=== PATIENT | female | born 1950 | race Caucasian/White ===

== ENCOUNTER 2016-12-06 00:59 | Inpatient (IN) ==
--- NOTE | 2016-12-06 01:12 | Emergency Department Note ---
Weakness HPI - General Chief complaint: Weakness Stated complaint: Weakness Time Seen by Provider: 12/06/16 01:10 Source: patient Mode of arrival: ambulatory Limitations: no limitations - History of Present Illness HPI Narrative: Patient presents with daughter was concerned for general lightheadedness weakness. Patient obviously jaundiced, unclear timeline. States accommodation of symptoms including nausea, anorexia, frequent falls without injury, increasingly weak. Patient apparently worked up 2 or 3 months ago through [facility], advised to stop drinking alcohol which she did completely. Also stopped taking frequent Percocet with Tylenol. Long-standing heavy alcohol history. . Negative hepatitis workup. Recent hysterectomy at the in September, indication Cancer. Has been advised to have radiation therapy but has been too weak to pursue. - Related Data Allergies Allergy/AdvReac Type Severity Reaction Status Date / Time No Known Drug Allergies Allergy Verified 12/06/16 01:00 Review of Systems All systems ED: reviewed and negative except as stated. Constitutional: Reports: weakness. Denies: fever, chills, weight change Cardiovascular: Denies: chest pain, palpitations, dyspnea on exertion Respiratory: Reports: dyspnea. Denies: cough Gastrointestinal: Denies: abdominal pain Past Medical History - Past Medical History Attestation: Yes: The following information was validated with the patient. Medical history: Reports: other (uterine ca; alcohol abuse) Surgical history ED: Reports: TOBY/BSO Family history: Reports: no significant family history - Social History smoking status: Never smoker Physical Exam - General Limitations: no limitations General appearance: other (meandering history) - Head Head exam: atraumatic - Eye Eye exam: Present: scleral icterus - ENT ENT exam: normal exam, mucous membranes dry - Neck Neck exam: Present: normal inspection. Absent: lymphadenopathy - Chest Chest inspection: Present: normal inspection - Respiratory Respiratory exam: Present: normal lung sounds bilaterally. Absent: respiratory distress - Cardiovascular Cardiovascular exam: Present: regular rate, normal rhythm. Absent: systolic murmur - Abdominal Exam Abdominal exam: Present: soft, organomegaly (large firm liver). Absent: tenderness, guarding - Extremities Exam Extremities exam: Present: normal inspection, other (1+ non pitting, generalized ) - Back Exam Back exam: Present: normal inspection - Neurological Exam Neurological exam: Present: alert - Psychiatric Psychiatric exam: Present: normal affect - Skin Skin exam: Present: warm, dry, other (dense bright jaundice) Course - Reevaluation(s) Reevaluation #1: patient continues to be mildly confused, profoundly weak. Unable to stand to pivot or transfer. Additional history from family the patient living in a hoarding situation in [place], picked up and brought here for further evaluation. Mother lives in town but the primary caregiver but advancing age. Daughter lives in [place],having to leave town shortly case discussed with Dr. Chávez, willing for admission patient to be held over pending bed later today Time: 08:06 Vital Signs Temperature 98.0 F 12/06/16 01:00 Pulse Rate 80 12/06/16 01:00 Respiratory Rate 18 12/06/16 01:00 Blood Pressure 89/66 12/06/16 01:00 Pulse Oximetry (%) 99 12/06/16 01:00 Temperature 98.0 F 12/06/16 01:00 Pulse Rate 76 12/06/16 07:58 Respiratory Rate 16 12/06/16 07:58 Blood Pressure 92/47 12/06/16 07:58 Pulse Oximetry (%) 99 12/06/16 07:58 Weakness - Lab Data Lab results reviewed: Yes I reviewed the patient's lab results. Result diagrams: 12/06/16 01:05 12/06/16 01:05 Lab Results 12/06/16 12/06/16 12/06/16 Range/Units 01:05 01:05 01:05 WBC 15.1 H (4.5-11.0) K/mcL RBC 3.38 L (4.00-5.20) M/mcL Hgb 12.2 (12.0-15.0) g/dL Hct 36.7 (36.0-48.0) % POC Hct 39.0 (36.0-48.0) % MCV 108.6 H (80.0-100.0) fL MCH 36.0 H (26.0-34.0) pg MCHC 33.1 (31.0-36.0) g/dL RDW 16.9 H (11.5-14.5) % Plt Count 236 (140-440) K/mcL MPV 9.1 (7.4-10.4) fL Gran % 83.6 H (38.0-78.0) % Lymph % (Auto) 8.6 L (15.5-49.0) % Beckham % (Auto) 7.5 (1.0-12.0) % Eos % (Auto) 0.3 (0.0-7.0) % Baso % (Auto) 0 (0.0-2.0) % Gran # 12.6 H (1.8-8.0) K/mcL Lymph # 1.3 L (1.5-4.8) K/mcL Beckham # 1.1 H (0.1-0.9) K/mcL Eos # 0 (0.0-0.7) K/mcL Baso # 0 (0.0-0.3) K/mcL PT 16.3 H (11.9-14.5) sec INR 1.3 H (0.9-1.1) POC Sodium 135 (133-145) mmol/L Sodium 131 L (133-145) mmol/L POC Potassium 2.6 L* (3.3-5.1) mmol/L Potassium 2.7 L* (3.3-5.1) mmol/L POC Chloride 94 L (96-108) mmol/L Chloride 90 L (96-108) mmol/L Carbon Dioxide 21 L (22-30) mmol/L POC Total CO2 24 (22-30) mmol/L Anion Gap 20.0 H (8-16) POC BUN 26 H (8-23) mg/dl BUN 27 H (8-23) mg/dl Creatinine < 2.0 H (0.6-1.1) mg/dl POC Creatinine 2.1 H (0.6-1.1) mg/dl GFR Calculation 25 Glucose 86 (70-105) mg/dL POC Glucose 85 (70-105) mg/dL Calcium 9.3 (8.6-10.4) mg/dl POC WB Ioniz Calcium 0.93 L (1.16-1.32) mmol/L Magnesium (1.6-2.5) mg/dL Total Bilirubin 30.7 H (0.0-1.0) mg/dL AST 260 H (0-37) U/l ALT 111 H (0-40) U/l Alkaline Phosphatase 337 H (39-117) U/L Ammonia (11-51) mcmol/L Total Protein 6.5 (5.9-8.4) gm/dL Albumin 2.9 L (3.2-5.2) gm/dL Globulin 3.6 (2.2-3.7) gm/dL Albumin/Globulin Ratio 0.8 L (1.0-2.3) 12/06/16 12/06/16 Range/Units 01:05 01:05 WBC (4.5-11.0) K/mcL RBC (4.00-5.20) M/mcL Hgb (12.0-15.0) g/dL Hct (36.0-48.0) % POC Hct (36.0-48.0) % MCV (80.0-100.0) fL MCH (26.0-34.0) pg MCHC (31.0-36.0) g/dL RDW (11.5-14.5) % Plt Count (140-440) K/mcL MPV (7.4-10.4) fL Gran % (38.0-78.0) % Lymph % (Auto) (15.5-49.0) % Beckham % (Auto) (1.0-12.0) % Eos % (Auto) (0.0-7.0) % Baso % (Auto) (0.0-2.0) % Gran # (1.8-8.0) K/mcL Lymph # (1.5-4.8) K/mcL Beckham # (0.1-0.9) K/mcL Eos # (0.0-0.7) K/mcL Baso # (0.0-0.3) K/mcL PT (11.9-14.5) sec INR (0.9-1.1) POC Sodium (133-145) mmol/L Sodium (133-145) mmol/L POC Potassium (3.3-5.1) mmol/L Potassium (3.3-5.1) mmol/L POC Chloride (96-108) mmol/L Chloride (96-108) mmol/L Carbon Dioxide (22-30) mmol/L POC Total CO2 (22-30) mmol/L Anion Gap (8-16) POC BUN (8-23) mg/dl BUN (8-23) mg/dl Creatinine (0.6-1.1) mg/dl POC Creatinine (0.6-1.1) mg/dl GFR Calculation Glucose (70-105) mg/dL POC Glucose (70-105) mg/dL Calcium (8.6-10.4) mg/dl POC WB Ioniz Calcium (1.16-1.32) mmol/L Magnesium 2.6 H (1.6-2.5) mg/dL Total Bilirubin (0.0-1.0) mg/dL AST (0-37) U/l ALT (0-40) U/l Alkaline Phosphatase (39-117) U/L Ammonia 63 H (11-51) mcmol/L Total Protein (5.9-8.4) gm/dL Albumin (3.2-5.2) gm/dL Globulin (2.2-3.7) gm/dL Albumin/Globulin Ratio (1.0-2.3) - Radiology Data Radiology results reviewed: Yes I reviewed the patient's radiology results. CT abdomen without contrast; ascites, . Large liver, unclear cirrhosis, no obstructive findings, no clear cancer Disposition Clinical Impression: Jaundice, Alcohol abuse, Weakness, Hepatorenal failure, Hypokalemia Liver failure Qualifiers: Liver failure chronicity: subacute Hepatic coma status: without hepatic coma Qualified Code(s): K72.00 - Acute and subacute hepatic failure without coma Summary: Report prognosis; apparent previous hepatopathy survey to the [facility], records to be requested Admit Dr. Dubon for further workup, probable group home placement Disposition: Xfer As Inpt ([facility]) Condition: Serious
[2016-12-06 03:08] LABS: Basophils # (Auto) 0 K/mcL (0.0-0.3); Basophils % (Auto) 0 % (0.0-2.0); Eosinophils # (Auto) 0 K/mcL (0.0-0.7); Eosinophils % (Auto) 0.3 % (0.0-7.0); Granulocytes % (Auto) 83.6 % (38.0-78.0); Lymphocytes # (Auto) 1.3 K/mcL (1.5-4.8); Lymphocytes % (Auto) 8.6 % (15.5-49.0); Mean Cell Volume 108.6 fL (80.0-100.0); Mean Corpuscular HGB Conc 33.1 g/dL (31.0-36.0); Monocytes # (Auto) 1.1 K/mcL (0.1-0.9); Monocytes % (Auto) 7.5 % (1.0-12.0); Platelet Count 236 K/mcL (140-440); RBC 3.38 M/mcL (4.00-5.20); Red Cell Distribution Width 16.9 % (11.5-14.5)
[2016-12-06 03:30] LABS: ALT/SGPT 111 U/l (0-40); Albumin 2.9 gm/dL (3.2-5.2); Albumin/Globulin Ratio 0.8 (1.0-2.3); Alkaline Phosphatase 337 U/L (39-117); Blood Urea Nitrogen 27 mg/dl (8-23)
[2016-12-06] MEDS ORDERED: POTASSIUM CHLORIDE 20 MEQ in DEXTROSE 5% IN WATER 250 ML IV ONE (03:38)
--- NOTE | 2016-12-06 07:52 | Cat Scan Report ---
CLINICAL INFORMATION: Jaundice. Weakness. COMPARISON: None. TECHNIQUE: Axial images were obtained through the abdomen and pelvis. Sagittally and coronally reformatted images. Intravenous contrast material was not administered due to a history of elevated creatinine FINDINGS: Lung bases are negative. No parenchymal infiltrate or mass. No pleural fluid. No pericardial fluid. Severe fatty infiltration of the liver consistent with hepatic steatosis. No hepatic mass. Liver contour is smooth. Gallbladder is not present. No dilated bile ducts. Negative pancreas. No pancreatic mass. Negative spleen. No splenomegaly. Negative adrenal glands. Negative kidneys. No hydronephrosis. No solid mass. There is a cortical calcification in the left kidney which measures 5 mm. There is mild associated renal cortical substance loss consistent with small focal chronic infarction. Uterus is been removed. Apparently there is a history of uterine cancer. There is free pelvic fluid. No adnexal mass. No localized fluid collections. No pneumoperitoneum. No biliary or portal venous gas. No pathologic retroperitoneal or mesenteric adenopathy. Colon is negative. No detectable colonic mass. No diverticulitis. No appendicitis. There is a compression deformity of the T11 vertebral body. Mild degenerative disc disease lumbar spine. Sacrum and pelvis are negative. Examination was initially interpreted by [facility] IMPRESSION: 1. Severe hepatic steatosis. No focal abnormality. No duct dilatation. 2. Previous hysterectomy. Small amount of free pelvic fluid. No localized fluid collections. Interpreted and Authenticated by: Vignesh Gage 12/06/16
[2016-12-06] MEDS ORDERED: POTASSIUM CHLORIDE 20 MEQ, MAGNESIUM SULFATE 16.24 MEQ, THIAMINE 100 MG, MVI, ADULT NO.... IV SCH (08:15)
[2016-12-06] MEDS ORDERED: POTASSIUM CHLORIDE 20 MEQ PACKET PO PRN (12:52)
[2016-12-06] MEDS ORDERED: LACTULOSE 20 GM/30 ML ORAL.SOL PO ONE (12:52)
[2016-12-06] MEDS ORDERED: MAGNESIUM SULFATE 2 GM/50 ML BAG IV PRN (12:52)
[2016-12-06] MEDS: prednisoLONE 15 MG/5 ML ORAL SOL PO SCH (15:19)
[2016-12-06] MEDS: 0.9 % SODIUM CHLORIDE 10 ML SYRINGE IV SCH ×2 (15:23→21:47)
--- NOTE | 2016-12-06 15:39 | Ultrasound Report ---
CLINICAL INFORMATION: Jaundice. TECHNIQUE: Grayscale and color flow spectral imaging COMPARISON: CT scan dated 12/06/2016 FINDINGS: Gallbladder is identified. The gallbladder is contracted. No definite stones. No dilated bile ducts. Common bile duct measures 4 to 5 mm Liver is markedly abnormal. Liver is very heterogeneous and sonographically dense consistent with severe fatty infiltration. A discrete hepatic mass is not noted. However Doppler was utilized and there is no definite flow identified within either the portal vein or the hepatic veins. Findings are suspicious for thrombosis. If this patient's creatinine normalizes a contrast-enhanced CT scan would be helpful. There is minimal perihepatic fluid. Mild ascites is demonstrated in the pelvis on previous CT scan. IMPRESSION: 1. Severe hepatic steatosis. No detectable mass. 2. No flow identified within hepatic or portal veins. Interpreted and Authenticated by: Vignesh Gage 12/06/16
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
[2016-12-06 16:45] LABS: ALT/SGPT 84 U/l (0-40); Albumin 2.3 gm/dL (3.2-5.2); Alkaline Phosphatase 249 U/L (39-117)
[2016-12-06 17:17] LABS: Bilirubin,Direct 18.6 mg/dL (0.0-0.3)
[2016-12-06 18:25] LABS: Amphetamine Screen,Urine SUSPECT POSITIVE (NONDETECTED); Benzodiazepines Screen,Urine NONE DETECTED (NONDETECTED); Cocaine Screen,Urine NONE DETECTED (NONDETECTED); Opiate Screen,Urine NONE DETECTED (NONDETECTED)
[2016-12-06] MEDS: SENNOSIDES/DOCUSATE SODIUM 1 TAB TABLET PO SCH (21:28)
[2016-12-06] MEDS: DOCUSATE SODIUM 100 MG CAPSULE PO SCH (21:28)
[2016-12-06] MEDS: CYANOCOBALAMIN (VITAMIN B-12) 500 MCG TABLET PO SCH (21:46)
[2016-12-06] MEDS: HEPARIN 5,000 UNIT/ML VIAL SQ SCH (21:46)
[2016-12-07] MEDS: ONDANSETRON 4 MG/2 ML VIAL IV PRN ×2 (03:10→11:20)
[2016-12-07] MEDS: 0.9 % SODIUM CHLORIDE 10 ML SYRINGE IV SCH ×3 (05:05→22:13)
[2016-12-07 05:58] LABS: Mean Cell Volume 108.2 fL (80.0-100.0); Mean Corpuscular HGB Conc 35.6 g/dL (31.0-36.0); Mean Corpuscular Hemoglobin 38.5 pg (26.0-34.0); Platelet Count 181 K/mcL (140-440); RBC 2.75 M/mcL (4.00-5.20); Red Cell Distribution Width 16.9 % (11.5-14.5)
[2016-12-07 06:23] LABS: ALT/SGPT 96 U/l (0-40); Albumin 2.6 gm/dL (3.2-5.2); Albumin/Globulin Ratio 0.9 (1.0-2.3); Alkaline Phosphatase 296 U/L (39-117); Blood Urea Nitrogen 33 mg/dl (8-23); Magnesium 3.1 mg/dL (1.6-2.5)
[2016-12-07 06:49] LABS: Anisocytosis 1+ (NONE SEEN); Band Neutrophils % 4 % (0-10); Lymphocytes % 5 % (15-49); Macrocytosis 2+ (NONE SEEN); Monocytes % (Manual) 4 % (1-12); Platelet Estimate NORMAL (NORMAL); RBC Morphology ABNORM (NORMAL); Segmented Neutrophils % 87 % (38-78)
[2016-12-07 06:54] LABS: Bilirubin,Direct 22.2 mg/dL (0.0-0.3)
--- NOTE | 2016-12-07 09:47 | Internal Med Progress Note ---
Medical - PN: Subj Patient information: Note initiated : 12/07/16 at 9:43 am Service Date, if different from initiated Date: [] Patient: Ebony Maki 66 y/o F admitted on 12/06/16 for Weakness. Chief Complaint: [] Interval history: 12/06- 66-year-old with history of chronic alcoholism admitted with hyperbilirubinemia hypokalemia and acute renal failure. Likely hepatorenal syndrome. GI consulted. Extensive workup for hyperbilirubinemia. CT abdomen negative. Doppler ultrasound/right upper quadrant ultrasound/hepatitis panel GI consult. Continue aggressive potassium replacement/crystalloids and renal function monitoring. High risk mortality. Inpatient admission 12/07- creatinine at 2.2. Potassium at 2.9. Continue crystalloids and potassium replacement. on lactulose for elevated ammonia. Await extensive workup from GI including ceruloplasmin/GARY/antimitochondrial antibody. bilirubin at 28 with direct fraction 22. afebrile. platelets downtrending. Hemoglobin 10.6. - Constitutional Vitals: Vital Signs Temp Pulse Resp BP Pulse Ox 97.1 F L 66 16 85/61 96 12/07/16 02:00 12/07/16 06:00 12/07/16 06:00 12/07/16 06:00 12/07/16 07:28 Period Temp Pulse Resp BP Sys/Francis Pulse Ox Last 24 Hr 97.1 F-97.7 F 64-136 11-20 85-114/53-73 89-100 Intake and Output 12/06/16 12/07/16 12/07/16 21:59 05:59 13:59 Intake Total 420 / 420 Output Total 125 / 125 265 / 265 Balance -125 / -125 155 / 155 Weight 154 lb 6.4 oz Intake & Output: Intake & Output 12/06/16 12/07/16 12/07/16 21:59 05:59 13:59 Intake Total 420 / 420 Output Total 125 / 125 265 / 265 Balance -125 / -125 155 / 155 Weight 154 lb 6.4 oz Intake: Oral 420 / 420 Output: Void Amount 125 / 125 190 / 190 Urine/Stool Mix 75 / 75 Other: # Voids 1 # Bowel Movements 0 # of times incontinent of 2 Bowels General appearance: no acute distress Exam: diffuse icterus No anxiety Alert nondistended abdomen No lymphedema Medical - PN: Obj Da - Labs CBC & Chem 7: 12/07/16 04:35 12/07/16 04:35 Labs: Abnormal Lab Results 12/07/16 12/07/16 12/06/16 04:35 04:35 17:00 WBC 12.4 H RBC 2.75 L Hgb 10.6 L Hct 29.7 L MCV 108.2 H MCH 38.5 H RDW 16.9 H Seg Neutrophils % 87 H Lymphocytes % 5 L RBC Morphology Abnorm A Anisocytosis 1+ A Macrocytosis 2+ A ESR Sodium 132 L Potassium 2.9 L* Chloride 93 L Carbon Dioxide 21 L Anion Gap 18.0 H BUN 33 H Creatinine < 2.2 H Glucose 111 H Magnesium 3.1 H Total Bilirubin 28.0 H Direct Bilirubin 22.2 H AST 207 H ALT 96 H Alkaline Phosphatase 296 H Lactate Dehydrogenase 537 H Total Protein < 5.5 L Albumin 2.6 L Albumin/Globulin Ratio 0.9 L Ur Amphetamines Screen Suspect positive A 12/06/16 12/06/16 15:04 14:00 WBC RBC Hgb Hct MCV MCH RDW Seg Neutrophils % Lymphocytes % RBC Morphology Anisocytosis Macrocytosis ESR 79 H Sodium Potassium Chloride Carbon Dioxide Anion Gap BUN Creatinine Glucose Magnesium Total Bilirubin 22.5 H Direct Bilirubin 18.6 H AST 210 H ALT 84 H Alkaline Phosphatase 249 H Lactate Dehydrogenase Total Protein Albumin 2.3 L Albumin/Globulin Ratio Ur Amphetamines Screen Meds: Medications Cyanocobalamin (Vitamin B-12) 1,000 mcg PO BID [facility] Stop: 12/11/16 09:01 Last Admin: 12/06/16 21:46 Dose: 1,000 mcg Docusate Sodium (Colace) 100 mg PO BID [facility] Last Admin: 12/06/16 21:28 Dose: Not Given Folic Acid (Folic Acid) 1 mg PO DAILY [facility] Heparin Sodium (Porcine) (Heparin) 5,000 unit SQ Q12 [facility] Last Admin: 12/06/16 21:46 Dose: 5,000 unit Potassium Chloride 40 meq/ (Dextrose) 520 mls @ 130 mls/hr IV UD PRN PRN Reason: K+ = or < 3.5 Magnesium Sulfate (Magnesium Sulfate) 2 gm in 50 mls @ 50 mls/hr IV UD PRN PRN Reason: MG = or < 1.7 Thiamine HCl 100 mg/ Sodium (Chloride) 51 mls @ 50 mls/hr IV DAILY [facility] Stop: 12/09/16 10:02 Sodium Chloride (Sodium Chloride 0.9%) 1,000 mls @ 0 mls/hr IV BOLUS NANCY PRN Reason: Wide Open Sodium Chloride (Sodium Chloride 0.9%) 1,000 mls @ 50 mls/hr IV .Q20H [facility] Stop: 12/09/16 20:44 Iron Carb/Multivit/Meigs/Folic Acid (Multivitamin W/Minerals) 1 tab PO DAILY [facility] Lactulose (Cephulac) 30 gm PO DAILY [facility] Ondansetron HCl (Zofran) 4 mg IV Q4-6HP PRN PRN Reason: Nausea And Vomiting Last Admin: 12/07/16 03:10 Dose: 4 mg Potassium Chloride (Klor-Con) 40 meq PO DAILYP PRN PRN Reason: K+ < 3.5 Prednisone (Prednisolone) 40 mg PO DAILY [facility] Last Admin: 12/06/16 15:19 Dose: 40 mg Senna/Docusate Sodium (Senna Plus Tablet) 1 tab PO HS [facility] Last Admin: 12/06/16 21:28 Dose: Not Given Sodium Chloride (Saline Flush) 10 ml IV Q8 [facility] Last Admin: 12/07/16 05:05 Dose: 10 ml Medical - PN: A/P - Time Spent With Patient Total time spent is greater than 50% in coordination of care (as documented) at patient's floor/unit and/or counseling patient: 25 - 35 minutes (1) Hepatorenal failure Status: Acute Assessment and plan: * Acute renal failure- high risk HRS. Continue close monitoring-nephrology consult. Creatinine 2.2 * hypokalemia on aggressive replacement * Hyperbilirubinemia- secondary to liver failure. Likely alcoholic. however Doppler ultrasound reveals absent flow in hepatic and portal venous system highly resistive of hepatic venous thrombosis. In light of elevated creatinine patient will be a high risk contrast nephropathy. Nephrology consulted for further advice * Anxiety disorder on Fluoxetin * Hypothyroidism on thyroxine * GERD on PPI * Full CODE STATUS Plan * Crystalloids and electrolyte replacement * GI and nephrology consult\ * patient will be a high risk for CT angiogram in light of hepatic and portal vein thrombosis further evaluation. await further recommendations from nephrology * Pre-existing medical condition management as above Current Visit: Yes Medical - PN: Qual - Stroke Symptom Onset Unknown: No - VTE Deep Vein Thrombosis/Pulmonary Embolism Present on Admission: No
--- NOTE | 2016-12-07 09:48 | Internal Med Progress Note ---
Medical - PN: Subj Patient information: Note initiated : 12/07/16 at 9:46 am Service Date, if different from initiated Date: [] Patient: Ebony Maki 66 y/o F admitted on 12/06/16 for Weakness and Jaundice with probable alcoholic hepatitis Chief Complaint: pt sleeping on rounds this a.m. Nurse says that she was up much of the night after receiving lactulose for elevated ammonia level. No signs of EtOH withdrawal. [] Interval history: pt was reported to be somewhat lethargic last p.m. when she received the lactulose. Pertinent ROS: general weakness with Physical therapy consulted - Constitutional Vitals: Vital Signs Temp Pulse Resp BP Pulse Ox 97.1 F L 66 16 85/61 96 12/07/16 02:00 12/07/16 06:00 12/07/16 06:00 12/07/16 06:00 12/07/16 07:28 Period Temp Pulse Resp BP Sys/Francis Pulse Ox Last 24 Hr 97.1 F-97.7 F 64-136 11-20 85-114/53-73 89-100 Intake and Output 12/06/16 12/07/16 12/07/16 21:59 05:59 13:59 Intake Total 420 / 420 Output Total 125 / 125 265 / 265 Balance -125 / -125 155 / 155 Weight 154 lb 6.4 oz Intake & Output: Intake & Output 12/06/16 12/07/16 12/07/16 21:59 05:59 13:59 Intake Total 420 / 420 Output Total 125 / 125 265 / 265 Balance -125 / -125 155 / 155 Weight 154 lb 6.4 oz Intake: Oral 420 / 420 Output: Void Amount 125 / 125 190 / 190 Urine/Stool Mix 75 / 75 Other: # Voids 1 # Bowel Movements 0 # of times incontinent of 2 Bowels General appearance: average body habitus - Eye Eye exam: Present: scleral icterus - Respiratory Respiratory exam: Present: normal respiratory exam - GI/Abdominal GI/Abdominal exam: Present: soft. Absent: distended Medical - PN: Obj Da - Labs CBC & Chem 7: 12/07/16 04:35 12/07/16 04:35 Labs: Abnormal Lab Results 12/07/16 12/07/16 12/06/16 04:35 04:35 17:00 WBC 12.4 H RBC 2.75 L Hgb 10.6 L Hct 29.7 L MCV 108.2 H MCH 38.5 H RDW 16.9 H Seg Neutrophils % 87 H Lymphocytes % 5 L RBC Morphology Abnorm A Anisocytosis 1+ A Macrocytosis 2+ A ESR Sodium 132 L Potassium 2.9 L* Chloride 93 L Carbon Dioxide 21 L Anion Gap 18.0 H BUN 33 H Creatinine < 2.2 H Glucose 111 H Magnesium 3.1 H Total Bilirubin 28.0 H Direct Bilirubin 22.2 H AST 207 H ALT 96 H Alkaline Phosphatase 296 H Lactate Dehydrogenase 537 H Total Protein < 5.5 L Albumin 2.6 L Albumin/Globulin Ratio 0.9 L Ur Amphetamines Screen Suspect positive A 12/06/16 12/06/16 15:04 14:00 WBC RBC Hgb Hct MCV MCH RDW Seg Neutrophils % Lymphocytes % RBC Morphology Anisocytosis Macrocytosis ESR 79 H Sodium Potassium Chloride Carbon Dioxide Anion Gap BUN Creatinine Glucose Magnesium Total Bilirubin 22.5 H Direct Bilirubin 18.6 H AST 210 H ALT 84 H Alkaline Phosphatase 249 H Lactate Dehydrogenase Total Protein Albumin 2.3 L Albumin/Globulin Ratio Ur Amphetamines Screen Meds: Medications Cyanocobalamin (Vitamin B-12) 1,000 mcg PO BID [facility] Stop: 12/11/16 09:01 Last Admin: 12/06/16 21:46 Dose: 1,000 mcg Docusate Sodium (Colace) 100 mg PO BID [facility] Last Admin: 12/06/16 21:28 Dose: Not Given Folic Acid (Folic Acid) 1 mg PO DAILY [facility] Heparin Sodium (Porcine) (Heparin) 5,000 unit SQ Q12 [facility] Last Admin: 12/06/16 21:46 Dose: 5,000 unit Potassium Chloride 40 meq/ (Dextrose) 520 mls @ 130 mls/hr IV UD PRN PRN Reason: K+ = or < 3.5 Magnesium Sulfate (Magnesium Sulfate) 2 gm in 50 mls @ 50 mls/hr IV UD PRN PRN Reason: MG = or < 1.7 Thiamine HCl 100 mg/ Sodium (Chloride) 51 mls @ 50 mls/hr IV DAILY [facility] Stop: 12/09/16 10:02 Sodium Chloride (Sodium Chloride 0.9%) 1,000 mls @ 0 mls/hr IV BOLUS [facility] PRN Reason: Wide Open Sodium Chloride (Sodium Chloride 0.9%) 1,000 mls @ 50 mls/hr IV .Q20H [facility] Stop: 12/09/16 20:44 Iron Carb/Multivit/Aquatic Facility Manager/Folic Acid (Multivitamin W/Minerals) 1 tab PO DAILY [facility] Lactulose (Cephulac) 30 gm PO DAILY [facility] Ondansetron HCl (Zofran) 4 mg IV Q4-6HP PRN PRN Reason: Nausea And Vomiting Last Admin: 12/07/16 03:10 Dose: 4 mg Potassium Chloride (Klor-Con) 40 meq PO DAILYP PRN PRN Reason: K+ < 3.5 Potassium Chloride (Potassium Chloride) 20 meq PT BIDCC [facility] Prednisone (Prednisolone) 40 mg PO DAILY [facility] Last Admin: 12/06/16 15:19 Dose: 40 mg Senna/Docusate Sodium (Senna Plus Tablet) 1 tab PO HS [facility] Last Admin: 12/06/16 21:28 Dose: Not Given Sodium Chloride (Saline Flush) 10 ml IV Q8 [facility] Last Admin: 12/07/16 05:05 Dose: 10 ml Medical - PN: A/P - Time Spent With Patient Total time spent is greater than 50% in coordination of care (as documented) at patient's floor/unit and/or counseling patient: less than 15 minutes - Narrative A/P Narrative: EtOH hepatitis- the total bilirubin has gone from about 31 to 22 to 28 . I believe the accuracy of the lab measurement is suboptimal at these high levels of bilirubin. However, WBC count has come down a little along with AST. Continue prednisolone. [K+] needs ongoing repletion especially after lactulose induced diarrhea. Physical therapy and encouragement of nutritional intake also advised. Note made of suspected amphetamine positive urine drug screen. Family says that for past 3 weeks pt has been in a hotel room on her own and not responding to phone calls. Medical - PN: Qual - Stroke Symptom Onset Unknown: No - VTE Deep Vein Thrombosis/Pulmonary Embolism Present on Admission: No
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
[2016-12-07] MEDS: 0.9 % SODIUM CHLORIDE 1,000 ML IV SCH ×2 (10:55→12:54)
[2016-12-07] MEDS: POTASSIUM CHLORIDE 40 MEQ in DEXTROSE 5% IN WATER 500 ML IV PRN (10:59)
[2016-12-07] MEDS: LACTULOSE 20 GM/30 ML ORAL.SOL PO SCH (11:19)
[2016-12-07] MEDS: PANTOPRAZOLE 40 MG TABLET PO SCH ×2 (11:20→16:23)
[2016-12-07] MEDS: MULTIVIT,THER IRON,CA,FA & MIN 1 TABLET PO SCH (11:20)
[2016-12-07] MEDS: HEPARIN 5,000 UNIT/ML VIAL SQ SCH (11:20)
[2016-12-07] MEDS: CYANOCOBALAMIN (VITAMIN B-12) 500 MCG TABLET PO SCH ×2 (11:20→22:39)
[2016-12-07] MEDS: FOLIC ACID 1 MG TABLET PO SCH (11:21)
[2016-12-07] MEDS: DOCUSATE SODIUM 100 MG CAPSULE PO SCH ×2 (11:22→19:28)
[2016-12-07] MEDS: prednisoLONE 15 MG/5 ML ORAL SOL PO SCH (11:22)
[2016-12-07] MEDS: THIAMINE 100 MG in 0.9 % SODIUM CHLORIDE 50 ML IV SCH (11:22)
[2016-12-07] MEDS: POTASSIUM CHLORIDE 20 MEQ/15 ML ML PT SCH ×2 (11:30→19:33)
[2016-12-07] MEDS ORDERED: HEPARIN/D5W 25,000 UNIT in PREMIX 1 BAG IV SCH (14:30)
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
[2016-12-07 15:57] LABS: Basophils # (Auto) 0.1 K/mcL (0.0-0.3); Basophils % (Auto) 0.4 % (0.0-2.0); Eosinophils # (Auto) 0 K/mcL (0.0-0.7); Eosinophils % (Auto) 0 % (0.0-7.0); Granulocytes % (Auto) 84.9 % (38.0-78.0); Lymphocytes # (Auto) 1.3 K/mcL (1.5-4.8); Lymphocytes % (Auto) 9.6 % (15.5-49.0); Mean Corpuscular Hemoglobin 38.1 pg (26.0-34.0); Monocytes # (Auto) 0.7 K/mcL (0.1-0.9); Monocytes % (Auto) 5.1 % (1.0-12.0); Platelet Count 195 K/mcL (140-440); RBC 2.88 M/mcL (4.00-5.20)
[2016-12-07] MEDS ORDERED: MIDAZOLAM 2 MG/2 ML VIAL IV ONE (16:39)
[2016-12-07] MEDS ORDERED: MIDAZOLAM 2 MG/2 ML VIAL IV SCH (16:45)
[2016-12-07] MEDS ORDERED: PROPOFOL 200 MG/20 ML VIAL IV SCH (16:45)
[2016-12-07] MEDS ORDERED: PROPOFOL 20 ML IV ONE (16:54)
[2016-12-07] MEDS ORDERED: MIDAZOLAM 2 MG/2 ML VIAL ONE (16:54)
[2016-12-07] MEDS: PROPOFOL 200 MG/20 ML VIAL IV ONE ×2 (17:07→17:52)
[2016-12-07] MEDS ORDERED: 0.9 % SODIUM CHLORIDE 500 ML IV ONE (18:41)
[2016-12-07] MEDS: SENNOSIDES/DOCUSATE SODIUM 1 TAB TABLET PO SCH (19:28)
[2016-12-07 21:04] LABS: Appearance,Urine CLOUDY; Bacteria,Urine MOD /hpf (0); Color,Urine AMBER; Glucose,Urine (UA) 50 mg/dL (NEG); Leukocyte Esterase,Urine 25 /uL (NEG); Mucus,Urine FEW /hpf (0); Nitrate,Urine NEG (NEG); Protein,Urine 30 mg/dL (NEG); Specific Gravity,Urine 1.017 (1.000-1.035); Urine Amorphous Crystals FEW /hpf (0); Urine Blood 0.2 mg/dL (<0.03); Urine Cellular Cast 2 /lpf (0); Urine Hyaline Cast 4 /lpf (0-2); Urine RBC 5 /hpf (0-1); Urine Renal Epithelial Cells < 1 /hpf (0-2); Urine Squamous Epithelial Cell 1 /hpf (0-4); Urine Transitional Epi Cells 5 /hpf (0-2); Urine WBC 26 /hpf (0-4)
[2016-12-07] MEDS ORDERED: ALBUMIN HUMAN 37.5 GM/150 ML BAG IV ONE ×2 (21:06→21:45)
[2016-12-07] MEDS ORDERED: NOREPINEPHRINE BITARTRATE 16 MG in 0.9 % SODIUM CHLORIDE 234 ML IV SCH (21:15)
[2016-12-07] MEDS ORDERED: ALBUMIN HUMAN IV ONE (21:45)
[2016-12-07] MEDS ORDERED: NOREPINEPHRINE BITARTRATE 4 MG/4 ML AMPUL IV ONE (22:32)
[2016-12-07] MEDS: ALBUMIN HUMAN 37.5 GM/150 ML BAG IV ONE (23:03)
[2016-12-08] MEDS: ALBUMIN HUMAN 37.5 GM/150 ML BAG IV ONE (00:55)
[2016-12-08] MEDS ORDERED: ALBUMIN HUMAN 25 GM/100 ML BAG IV ONE ×3 (01:19→10:11)
[2016-12-08] MEDS: 0.9 % SODIUM CHLORIDE 1,000 ML IV SCH ×2 (02:57→09:32)
[2016-12-08] MEDS: 0.9 % SODIUM CHLORIDE 10 ML SYRINGE IV SCH (04:40)
[2016-12-08 06:05] LABS: Mean Cell Volume 106.2 fL (80.0-100.0); Mean Corpuscular Hemoglobin 38.3 pg (26.0-34.0); Platelet Count 239 K/mcL (140-440); RBC 2.82 M/mcL (4.00-5.20)
[2016-12-08 06:45] LABS: ALT/SGPT 92 U/l (0-40); Albumin 2.5 gm/dL (3.2-5.2); Albumin/Globulin Ratio 0.9 (1.0-2.3); Alkaline Phosphatase 285 U/L (39-117); Bilirubin,Direct 23.7 mg/dL (0.0-0.3); Blood Urea Nitrogen 38 mg/dl (8-23); Magnesium 2.9 mg/dL (1.6-2.5); Uric Acid 5.8 mg/dL (2.5-8.0)
[2016-12-08 07:10] LABS: Band Neutrophils % 2 % (0-10); Lymphocytes % 4 % (15-49); Macrocytosis 2+ (NONE SEEN); Monocytes % (Manual) 3 % (1-12); Myelocytes % 1 % (0-0); Platelet Estimate NORMAL (NORMAL); RBC Morphology ABNORM (NORMAL); Segmented Neutrophils % 90 % (38-78)
[2016-12-08] MEDS ORDERED: NOREPINEPHRINE BITARTRATE 16 MG in 0.9 % SODIUM CHLORIDE 234 ML IV PRN (07:10)
[2016-12-08] MEDS: POTASSIUM CHLORIDE 40 MEQ in DEXTROSE 5% IN WATER 500 ML IV PRN (07:22)
[2016-12-08] MEDS: 0.9 % SODIUM CHLORIDE 250 ML IV SCH ×3 (07:30→09:49)
[2016-12-08] MEDS ORDERED: LEVOTHYROXINE 25 MCG TABLET PO SCH (07:30)
[2016-12-08] MEDS: PANTOPRAZOLE 40 MG TABLET PO SCH (07:33)
[2016-12-08] MEDS ORDERED: NOREPINEPHRINE BITARTRATE 16 MG in 0.9 % SODIUM CHLORIDE 234 ML IV SCH (08:15)
[2016-12-08] MEDS ORDERED: POTASSIUM CHLORIDE 20 MEQ/15 ML ML PT SCH (08:30)
[2016-12-08] MEDS ORDERED: METHOCARBAMOL 750 MG TABLET PO SCH (09:00)
[2016-12-08] MEDS ORDERED: FLUoxetine HCL 20 MG CAPSULE PO SCH (09:00)
[2016-12-08] MEDS ORDERED: FAMOTIDINE 20 MG TABLET PO SCH (09:00)
[2016-12-08] MEDS: FOLIC ACID 1 MG TABLET PO SCH (09:30)
[2016-12-08] MEDS: CYANOCOBALAMIN (VITAMIN B-12) 500 MCG TABLET PO SCH (09:30)
[2016-12-08] MEDS: MULTIVIT,THER IRON,CA,FA & MIN 1 TABLET PO SCH (09:30)
[2016-12-08] MEDS: DOCUSATE SODIUM 100 MG CAPSULE PO SCH ×2 (09:30→09:36)
[2016-12-08] MEDS: LACTULOSE 20 GM/30 ML ORAL.SOL PO SCH (09:30)
[2016-12-08] MEDS: THIAMINE 100 MG in 0.9 % SODIUM CHLORIDE 50 ML IV SCH (09:31)
[2016-12-08] MEDS: prednisoLONE 15 MG/5 ML ORAL SOL PO SCH (09:35)
[2016-12-08] MEDS: POTASSIUM CHLORIDE 20 MEQ/15 ML ML PT SCH (09:57)
--- NOTE | 2016-12-08 10:06 | Transfer Summary ---
Transfer Discharge Sum: Prov Patient information: Note initiated : 12/08/16 at 9:58 am Service Date, if different from initiated Date: [] Patient: Ebony Maki 66 y/o F admitted on 12/06/16 for Weakness. Chief Complaint: [] Date of admission: 12/06/16 12:50 Discharge Date: 12/08/16 Primary care physician: [f_Reg Prim Care Provider] Consults: 12/07/16 10:00 Consult to Physician [CONS] Routine Comment: Consulting Provider: Chantal Rose Reason For Exam: Physician to Consult Receiving physician/facility: Dr Neal Transfer Discharge Sum: Diag - Discharge Diagnosis (1) Hepatorenal failure Status: Acute Transfer Discharge Sum: Med - Medications Active and Home Medications: Home Medications FLUoxetine HCL [PROzac] 40 mg PO DAILY 12/06/16 [History Confirmed 12/06/16] Levothyroxine [Synthroid] 25 mcg PO DAILY 12/06/16 [History Confirmed 12/06/16] Methocarbamol [Robaxin-750] 750 mg PO DAILY 12/06/16 [History Confirmed 12/06/16 ] Omeprazole [PriLOSEC] 20 mg PO BIDAC 12/06/16 [History Confirmed 12/06/16] Ranitidine HCl [Zantac] 150 mg PO DAILY 12/06/16 [History Confirmed 12/06/16] Zolpidem [Ambien] 5 mg PO HSP 12/06/16 [History Confirmed 12/06/16] Active Medications Cyanocobalamin (Vitamin B-12) 1,[address] [facility] Stop: 12/11/16 09:01 Last Admin: 12/08/16 09:30 Dose: 1,000 mcg Docusate Sodium (Colace) [address] [facility] Last Admin: 12/08/16 09:36 Dose: Not Given Famotidine (Pepcid) [address] [facility] Last Admin: 12/08/16 09:30 Dose: 20 mg Fluoxetine HCl (Prozac) [address] [facility] Last Admin: 12/08/16 09:30 Dose: 40 mg Folic Acid (Folic Acid) [address] [facility] Last Admin: 12/08/16 09:30 Dose: 1 mg Potassium Chloride 40 meq/ (Dextrose) 520 mls @ 130 mls/hr IV UD PRN PRN Reason: K+ = or < 3.5 Last Admin: 12/08/16 07:22 Dose: 130 mls/hr Magnesium Sulfate (Magnesium Sulfate) 2 gm in 50 mls @ 50 mls/hr IV UD PRN PRN Reason: MG = or < 1.7 Thiamine HCl 100 mg/ Sodium (Chloride) 51 mls @ 50 mls/hr IV DAILY [facility] Stop: 12/09/16 10:02 Last Admin: 12/08/16 09:31 Dose: 50 mls/hr Sodium Chloride (Sodium Chloride 0.9%) 1,000 mls @ 0 mls/hr IV BOLUS [facility] PRN Reason: Wide Open Last Admin: 12/08/16 09:32 Dose: Not Given Sodium Chloride (Sodium Chloride 0.9%) 1,000 mls @ 50 mls/hr IV .Q20H [facility] Stop: 12/09/16 20:44 Last Admin: 12/08/16 02:57 Dose: 50 mls/hr Heparin Sodium/Dextrose 25,000 (unit/ Premix) 500 mls @ 19.6 mls/hr IV .Q24H [facility]; 14 UNIT/KG/HR PRN Reason: Protocol Last Titration: 12/08/16 02:57 Dose: 10 unit/kg/hr, 14 mls/hr Sodium Chloride (Sodium Chloride 0.9%) 250 mls @ 20 mls/hr IV .[id number] [facility] Last Admin: 12/08/16 09:49 Dose: Not Given Norepinephrine Bitartrate 16 (mg/ Sodium Chloride) 250 mls @ 1.87 mls/hr IV Q24H [facility]; 2 MCG/MIN PRN Reason: Protocol Last Titration: 12/08/16 08:34 Dose: 4 mcg/min, 3.75 mls/hr Iron Carb/Multivit/Mora/Folic Acid (Multivitamin W/Minerals) 1 tab PO DAILY [facility] Last Admin: 12/08/16 09:30 Dose: 1 tab Lactulose (Cephulac) 30 gm PO DAILY [facility] Last Admin: 12/08/16 09:30 Dose: 30 gm Levothyroxine Sodium (Synthroid) 25 mcg PO ACB [facility] Last Admin: 12/08/16 07:33 Dose: 25 mcg Methocarbamol (Robaxin) 750 mg PO DAILY [facility] Last Admin: 12/08/16 09:34 Dose: 750 mg Ondansetron HCl (Zofran) 4 mg IV Q4-6HP PRN PRN Reason: Nausea And Vomiting Last Admin: 12/07/16 11:20 Dose: 4 mg Pantoprazole Sodium (Protonix) [address] [facility] Last Admin: 12/08/16 07:33 Dose: 40 mg Potassium Chloride (Klor-Con) 40 meq PO DAILYP PRN PRN Reason: K+ < 3.5 Potassium Chloride (Potassium Chloride) [address] [facility] Last Admin: 12/08/16 09:57 Dose: 20 meq Prednisone (Prednisolone) [address] [facility] Last Admin: 12/08/16 09:35 Dose: 40 mg Senna/Docusate Sodium (Senna Plus Tablet) [address] [facility] Last Admin: 12/07/16 19:28 Dose: Not Given Sodium Chloride (Saline Flush) [address] [facility] Last Admin: 12/08/16 04:40 Dose: Not Given Transfer Discharge Sum: Hosp Hospital course: DISCHARGE DIAGNOSES * Hepatorenal syndrome-anuric. per nephrology patient will require hemodialysis. Transfer to tertiary Center for further management * Acute liver failure secondary to hepatic and portal vein thrombosis on doppler US, in the setting of c/c etoh use. Not amenable to CT angiogram in light of elevated creatinine- started on anticoagulation- Heparin drip. case discussed with IR. no emergent indication for thrombectomy as per IR Dr. Vignesh Vazquez. * Hypokalemia continue aggressive replacement. Potassium at 2.9 * Anxiety disorder on Fluoxetin * Hypothyroidism on thyroxine * GERD on PPI [facility] Ms. Maki is a 66 year old female admitted on 12/06 with history of chronic alcoholism admitted with hyperbilirubinemia, hypokalemia and acute renal failure. Likely hepatorenal syndrome. GI consulted. Extensive workup for hyperbilirubinemia ongoing CT abdomen negative. Doppler ultrasound/right upper quadrant ultrasound/hepatitis panel GI consult. Continue aggressive potassium replacement/crystalloids and renal function monitoring. High risk mortality. Inpatient admission 12/07- creatinine at 2.2. Potassium at 2.9. Continue crystalloids and potassium replacement. on lactulose for elevated ammonia. Await extensive workup from GI including ceruloplasmin/GARY/antimitochondrial antibody. bilirubin at 28 with direct fraction 22. afebrile. platelets downtrending. Hemoglobin 10.6. ADDENDUM case discussed with nephrology and GI. Started on full dose anticoagulation on heparin. EGD today. Continue crystalloids. If creatinine improved will need CT angiogram. Await discussion with interventional radiology ADDENDUM Case discussed with interventional radiology Dr. Vignesh Vazquez and Dr. Saunders. IR recommends continuing anticoagulation on heparin. Patient has significant decline in urine output and developed progressive hepatorenal syndrome. As per nephrology recommendations started on albumin 1 mg per KG body weight/Levophed along with fluid challenge. patient critically ill. 12/08- case discussed with interventional mothers helper Dr.Steve Neal at [place] patient transferred to ICU and consultation with access control officer/IR and nephrology in light of need for dialysis. patient accepted for further management. Appreciate Dr. Jose Neal's help in further management of this critically ill patient. on 8 mics Levophed, second albumin infusion 50 mg today. transfer by air ambulance. - Time Spent with Patient Total time spent providing and/or coordinating transfer services: Greater than 30 minutes Transfer Discharge Sum: Exam - Constitutional Vitals: Vital Signs Temp Pulse Pulse Resp BP BP BP 12/08/16 09:46 20 120/68 12/08/16 09:45 16 12/08/16 09:36 17 121/60 12/08/16 09:35 17 12/08/16 09:30 20 142/112 12/08/16 09:29 17 12/08/16 09:16 82 16 120/74 12/08/16 09:15 84 18 12/08/16 09:01 18 108/69 12/08/16 09:00 82 17 12/08/16 08:46 73 13 111/65 12/08/16 08:45 75 13 12/08/16 08:31 77 16 123/103 12/08/16 08:30 78 16 12/08/16 08:26 78 14 115/64 12/08/16 08:25 78 14 106/79 12/08/16 08:24 80 13 12/08/16 08:07 81 11 L 68/59 12/08/16 08:06 81 17 12/08/16 08:05 80 19 76/53 12/08/16 08:04 81 13 12/08/16 08:01 81 19 75/33 12/08/16 08:00 82 75 14 123/103 12/08/16 07:01 81 14 108/85 12/08/16 07:00 80 96 H 17 135/101 135/101 12/08/16 06:14 78 17 12/08/16 06:01 79 16 98/63 12/08/16 06:00 78 14 12/08/16 05:32 78 17 12/08/16 05:01 80 16 101/58 12/08/16 05:00 81 16 12/08/16 04:01 81 19 97/60 12/08/16 04:00 80 16 12/08/16 03:44 79 15 12/08/16 03:01 77 18 100/59 12/08/16 03:00 78 17 12/08/16 02:17 77 13 100/61 12/08/16 02:16 74 13 12/08/16 02:15 78 14 100/61 12/08/16 02:11 79 18 12/08/16 02:03 75 18 89/48 12/08/16 02:02 75 15 12/08/16 02:00 18 12/08/16 01:01 14 95/55 12/08/16 01:00 15 12/08/16 00:34 18 12/08/16 00:01 18 103/59 12/08/16 00:00 17 12/07/16 23:27 17 12/07/16 23:01 16 100/71 12/07/16 23:00 14 12/07/16 22:35 16 12/07/16 22:20 18 104/55 12/07/16 22:19 16 12/07/16 21:38 74 18 12/07/16 21:01 74 13 96/59 12/07/16 21:00 76 11 L 12/07/16 20:07 72 14 12/07/16 20:01 71 14 89/62 12/07/16 20:00 72 13 12/07/16 19:57 16 12/07/16 19:25 69 16 12/07/16 19:01 65 14 90/53 12/07/16 19:00 98.9 F 59 L 22 12/07/16 18:01 61 13 95/68 12/07/16 18:00 63 70 14 12/07/16 17:29 59 L 14 86/61 12/07/16 17:28 62 16 12/07/16 17:25 61 15 12/07/16 17:17 61 12 90/57 12/07/16 17:16 61 13 12/07/16 17:10 63 63 14 90/57 12/07/16 17:01 67 16 105/75 12/07/16 17:00 96.6 F L 67 66 14 12/07/16 16:47 96.6 F L 13 95/65 12/07/16 16:01 64 18 95/65 12/07/16 16:00 98.4 F 64 66 12 12/07/16 15:01 25 H 101/57 12/07/16 15:00 68 19 12/07/16 14:01 70 13 96/64 12/07/16 14:00 68 85 14 12/07/16 13:10 98.3 F 69 15 96/63 12/07/16 13:03 68 22 12/07/16 13:02 67 18 12/07/16 13:01 68 16 96/63 12/07/16 13:00 66 75 15 12/07/16 12:02 19 108/76 12/07/16 12:01 16 12/07/16 12:00 98.0 F 79 18 12/07/16 11:01 10 L 87/51 12/07/16 11:00 66 11 L 12/07/16 10:01 11 L 81/48 12/07/16 10:00 66 13 BP Pulse Ox 12/08/16 09:46 12/08/16 09:45 12/08/16 09:36 12/08/16 09:35 12/08/16 09:30 12/08/16 09:29 12/08/16 09:16 97 12/08/16 09:15 98 12/08/16 09:01 12/08/16 09:00 99 12/08/16 08:46 97 12/08/16 08:45 97 12/08/16 08:31 99 12/08/16 08:30 99 12/08/16 08:26 98 12/08/16 08:25 97 12/08/16 08:24 97 12/08/16 08:07 96 12/08/16 08:06 97 12/08/16 08:05 99 12/08/16 08:04 98 12/08/16 08:01 99 12/08/16 08:00 97 12/08/16 07:01 97 12/08/16 07:00 98 12/08/16 06:14 100 12/08/16 06:01 99 12/08/16 06:00 99 12/08/16 05:32 99 12/08/16 05:01 98 12/08/16 05:00 98 12/08/16 04:01 100 12/08/16 04:00 100 12/08/16 03:44 99 12/08/16 03:01 100 12/08/16 03:00 100 12/08/16 02:17 99 12/08/16 02:16 99 12/08/16 02:15 100 12/08/16 02:11 99 12/08/16 02:03 96 12/08/16 02:02 98 12/08/16 02:00 99 12/08/16 01:01 12/08/16 01:00 12/08/16 00:34 12/08/16 00:01 12/08/16 00:00 12/07/16 23:27 12/07/16 23:01 12/07/16 23:00 12/07/16 22:35 12/07/16 22:20 12/07/16 22:19 12/07/16 21:38 99 12/07/16 21:01 100 12/07/16 21:00 99 12/07/16 20:07 98 12/07/16 20:01 100 12/07/16 20:00 100 12/07/16 19:57 12/07/16 19:25 100 12/07/16 19:01 97 12/07/16 19:00 99 12/07/16 18:01 100 12/07/16 18:00 95/68 99 12/07/16 17:29 100 12/07/16 17:28 99 12/07/16 17:25 86/61 05 17:17 100 12/07/16 17:16 100 12/07/16 17:10 90/57 100 12/07/16 17:01 99 12/07/16 17:00 105/75 94 12/07/16 16:47 100 12/07/16 16:01 100 12/07/16 16:00 95/65 100 12/07/16 15:01 12/07/16 15:00 101/57 100 12/07/16 14:01 100 12/07/16 14:00 96/64 100 12/07/16 13:10 100 12/07/16 13:03 100 12/07/16 13:02 100 12/07/16 13:01 99 12/07/16 13:00 96/63 100 12/07/16 12:02 12/07/16 12:01 12/07/16 12:00 108/76 100 12/07/16 11:01 12/07/16 11:00 87/51 100 12/07/16 10:01 12/07/16 10:00 81/48 100 Intake and Output 12/07/16 12/08/16 12/08/16 21:59 05:59 13:59 Intake Total 1258 / 1258 1189 / 1189 Output Total 94 / 94 127 / 127 30 / Balance 1164 / 1164 1062 / 1062 -29 / -29 Intake: IV 1258 / 1258 1189 / 1189 Sodium Chloride 0.9% 1, 187 / 187 702 / 702 000 ml @ 50 mls/hr IV . Q20H [facility] Rx#:[id number] Sodium Chloride 0.9% 500 500 / 500 ml @ Wide Open IV [facility] Rx#:[id number] Heparin/D5w 25,000 Unit 229 / 229 In Premix 1 Bag @ 14 UNIT /KG/HR 19.6 mls/hr IV . Q24H [facility] Rx#:[id number] Levophed 16 mg In Sodium 1 / 1 Chloride 0.9% 234 ml @ 2 MCG/MIN 1.87 mls/hr IV Q24H [facility] Rx#:[id number] Potassium Chloride 40 Meq 520 / 520 In Dextrose 5% in Water 500 ml @ 130 mls/hr IV UD PRN Rx#:[id number] Vitamin B1 100 mg In 51 / 51 Sodium Chloride 0.9% 50 ml @ 50 mls/hr IV DAILY [facility] Rx#:[id number] Output: Urine Catheter Amount 94 / 94 127 / 127 20 / Void Amount Other: # of times incontinent of 2 1 Bowels Weight 154 lb 12.232 oz Transfer Discharge Sum: Data Procedures and tests throughout hospitalization: Pending Orders Transfer Discharge Sum: A/P - Problem Maintenance (1) Hepatorenal failure Status: Acute - Plan Functional capacity at transfer: bed bound Overall status at transfer: patient is not back to baseline Disposition: [facility] Quality Measure Queries - VTE Deep Vein Thrombosis/Pulmonary Embolism Present on Admission: No
[2016-12-08] MEDS ORDERED: OCTREOTIDE ACETATE 50 MCG/ML AMPUL IV ONE (10:16)
[2016-12-08] MEDS ORDERED: PANTOPRAZOLE 40 MG VIAL IV ONE (10:18)
[2016-12-08] MEDS: ONDANSETRON 4 MG/2 ML VIAL IV PRN (10:29)
[2016-12-08] MEDS ORDERED: PANTOPRAZOLE 80 MG in 0.9 % SODIUM CHLORIDE 100 ML IV SCH (10:30)
[2016-12-08] MEDS ORDERED: OCTREOTIDE ACETATE 500 MCG in 0.9 % SODIUM CHLORIDE 495 ML IV SCH (10:30)
--- NOTE | 2016-12-08 10:40 | Operative Note ---
DATE OF OPERATION: 12/07/2016 PROCEDURE: Esophagogastroduodenoscopy. COMMUNICATION SPECIALIST AND VENDING ROUTE SERVICER: Vignesh Baron MD. ANESTHETIC USED: Versed 1 mg IV, propofol 70 mg IV. PREOPERATIVE DIAGNOSIS: Patient with severe jaundice was found by ultrasound to have possible hepatic vein and portal vein thrombosis. Anticoagulation to be started empirically, but we wanted to see if there were any varices as potential bleeding sites before anticoagulation would continue. POSTOPERATIVE DIAGNOSES: 1. No varices. 2. Short segment of Garsia's esophagus. 3. Small clot at the GE junction without any surrounding blood to suggest significant recent bleeding. DESCRIPTION OF PROCEDURE: Prior to the procedure the patient provided her own informed consent. The patient was evaluated and considered medically fit for endoscopy. With the patient in the left lateral decubitus position, the gastroscope was advanced via the mouth to the esophagus under direct vision. The esophagus is notable for a short segment of Garsia's esophagus distally. I see no varices in the esophagus. At the GE junction, there is a small 4 mm circular clot with no active bleeding. I see no free blood in the esophagus or in the stomach. It is not clear whether she had a small Trena-Ramirez tear or a reflux ulcer. In the stomach there is some retained food material, but no varices seen and the antrum is clear without any ulcer. The duodenum was normal to the second portion. COMPLICATIONS: None immediate. RECOMMENDATIONS AND FOLLOWUP: Okay to proceed with the anticoagulation as planned. Will recommend PPI therapy given her Garsia's and with the small erosion or bleeding site at the GE junction. JCM:alcides Job ID: [id number] Doc ID: [id number] Vignesh Rose MD
--- NOTE | 2016-12-08 11:48 | Nephrology Progress Note ---
Subjective Patient information: Note initiated : 12/08/16 at 11:44 am Service Date, if different from initiated Date: [] Patient: Ebony Maki 66 y/o F admitted on 12/06/16 for Weakness/Acute Liver Failure, Jaundice. Chief Complaint: [] Principal diagnosis: acute liver failure Interval history: Patient remains critically ill She received IV albumin last night but levophed was not started per recommendation She remains oliguric, U/O only at 15-25cc/hour She denies SOB, CP, abdominal pain no c/o nausea no c/o edema She was started on heparin gtt for probable portal and hepatic vein thrombosis case discussed with Dr Vazquez as well She has EGD done yesterday which did not show varicose veins Pertinent ROS: as above Objective - Vital Signs Vital signs: Vital Signs Temp Pulse Pulse Resp BP BP BP 12/08/16 10:54 97.8 F 82 17 108/72 12/08/16 10:30 17 12/08/16 10:26 18 100/68 12/08/16 10:25 17 12/08/16 10:22 16 90/49 12/08/16 10:21 16 12/08/16 10:16 16 121/83 12/08/16 10:15 16 12/08/16 10:01 22 108/72 12/08/16 10:00 97.8 F 82 20 108/72 12/08/16 09:46 20 120/68 12/08/16 09:45 16 12/08/16 09:36 17 121/60 12/08/16 09:35 17 12/08/16 09:30 20 142/112 12/08/16 09:29 17 12/08/16 09:16 82 16 120/74 12/08/16 09:15 84 18 12/08/16 09:01 18 108/69 12/08/16 09:00 82 82 18 108/72 12/08/16 08:46 73 13 111/65 12/08/16 08:45 75 13 12/08/16 08:31 77 16 123/103 12/08/16 08:30 78 16 12/08/16 08:26 78 14 115/64 12/08/16 08:25 78 14 106/79 12/08/16 08:24 80 13 12/08/16 08:07 81 11 L 68/59 05/15/17 08:06 81 17 12/08/16 08:05 80 19 76/53 12/08/16 08:04 81 13 12/08/16 08:01 81 19 75/33 12/08/16 08:00 82 75 14 123/103 12/08/16 07:01 81 14 108/85 12/08/16 07:00 80 96 H 17 135/101 135/101 12/08/16 06:14 78 17 12/08/16 06:01 79 16 98/63 12/08/16 06:00 78 14 12/08/16 05:32 78 17 12/08/16 05:01 80 16 101/58 12/08/16 05:00 81 16 12/08/16 04:01 81 19 97/60 12/08/16 04:00 80 16 12/08/16 03:44 79 15 12/08/16 03:01 77 18 100/59 12/08/16 03:00 78 17 12/08/16 02:17 77 13 100/61 12/08/16 02:16 74 13 12/08/16 02:15 78 14 100/61 12/08/16 02:11 79 18 12/08/16 02:03 75 18 89/48 12/08/16 02:02 75 15 12/08/16 02:00 18 12/08/16 01:01 14 95/55 12/08/16 01:00 15 12/08/16 00:34 18 12/08/16 00:01 18 103/59 12/08/16 00:00 17 12/07/16 23:27 17 12/07/16 23:01 16 100/71 12/07/16 23:00 14 12/07/16 22:35 16 12/07/16 22:20 18 104/55 12/07/16 22:19 16 12/07/16 21:38 74 18 12/07/16 21:01 74 13 96/59 12/07/16 21:00 76 11 L 12/07/16 20:07 72 14 12/07/16 20:01 71 14 89/62 12/07/16 20:00 72 13 12/07/16 19:57 16 12/07/16 19:25 69 16 12/07/16 19:01 65 14 90/53 12/07/16 19:00 98.9 F 59 L 22 12/07/16 18:01 61 13 95/68 12/07/16 18:00 63 70 14 12/07/16 17:29 59 L 14 86/61 12/07/16 17:28 62 16 12/07/16 17:25 61 15 12/07/16 17:17 61 12 90/57 12/07/16 17:16 61 13 12/07/16 17:10 63 63 14 90/57 12/07/16 17:01 67 16 105/75 12/07/16 17:00 96.6 F L 67 66 14 12/07/16 16:47 96.6 F L 13 95/65 12/07/16 16:01 64 18 95/65 12/07/16 16:00 98.4 F 64 66 12 12/07/16 15:01 25 H 101/57 12/07/16 15:00 68 19 12/07/16 14:01 70 13 96/64 12/07/16 14:00 68 85 14 12/07/16 13:10 98.3 F 69 15 96/63 12/07/16 13:03 68 22 12/07/16 13:02 67 18 12/07/16 13:01 68 16 96/63 12/07/16 13:00 66 75 15 12/07/16 12:02 19 108/76 12/07/16 12:01 16 12/07/16 12:00 98.0 F 79 18 BP Pulse Ox 12/08/16 10:54 97 12/08/16 10:30 12/08/16 10:26 12/08/16 10:25 12/08/16 10:22 12/08/16 10:21 12/08/16 10:16 12/08/16 10:15 12/08/16 10:01 12/08/16 10:00 12/08/16 09:46 12/08/16 09:45 12/08/16 09:36 12/08/16 09:35 12/08/16 09:30 12/08/16 09:29 12/08/16 09:16 97 12/08/16 09:15 98 12/08/16 09:01 12/08/16 09:00 96 12/08/16 08:46 97 12/08/16 08:45 97 12/08/16 08:31 99 12/08/16 08:30 99 12/08/16 08:26 98 12/08/16 08:25 97 12/08/16 08:24 97 12/08/16 08:07 96 12/08/16 08:06 97 12/08/16 08:05 99 12/08/16 08:04 98 12/08/16 08:01 99 12/08/16 08:00 97 12/08/16 07:01 97 12/08/16 07:00 98 12/08/16 06:14 100 12/08/16 06:01 99 12/08/16 06:00 99 12/08/16 05:32 99 12/08/16 05:01 98 12/08/16 05:00 98 12/08/16 04:01 100 12/08/16 04:00 100 12/08/16 03:44 99 12/08/16 03:01 100 12/08/16 03:00 100 12/08/16 02:17 99 12/08/16 02:16 99 12/08/16 02:15 100 12/08/16 02:11 99 12/08/16 02:03 96 12/08/16 02:02 98 12/08/16 02:00 99 12/08/16 01:01 12/08/16 01:00 12/08/16 00:34 12/08/16 00:01 12/08/16 00:00 12/07/16 23:27 12/07/16 23:01 12/07/16 23:00 12/07/16 22:35 12/07/16 22:20 12/07/16 22:19 12/07/16 21:38 99 12/07/16 21:01 100 12/07/16 21:00 99 12/07/16 20:07 98 12/07/16 20:01 100 12/07/16 20:00 100 12/07/16 19:57 12/07/16 19:25 100 12/07/16 19:01 97 12/07/16 19:00 99 12/07/16 18:01 100 12/07/16 18:00 95/68 99 12/07/16 17:29 100 12/07/16 17:28 99 12/07/16 17:25 86/61 12/07/16 17:17 100 12/07/16 17:16 100 12/07/16 17:10 90/57 100 12/07/16 17:01 99 12/07/16 17:00 105/75 94 12/07/16 16:47 100 12/07/16 16:01 100 12/07/16 16:00 95/65 100 12/07/16 15:01 12/07/16 15:00 101/57 100 12/07/16 14:01 100 12/07/16 14:00 96/64 100 12/07/16 13:10 100 12/07/16 13:03 100 12/07/16 13:02 100 12/07/16 13:01 99 12/07/16 13:00 96/63 100 12/07/16 12:02 12/07/16 12:01 12/07/16 12:00 108/76 100 Intake and Output 12/07/16 12/08/16 12/08/16 21:59 05:59 13:59 Intake Total 1258 / 1258 1189 / 1189 52 / 52 Output Total 94 / 94 127 / 127 45 / 45 Balance 1164 / 1164 1062 / 1062 7 / 7 Intake: IV 1258 / 1258 1189 / 1189 52 / 52 Sodium Chloride 0.9% 1, 187 / 187 702 / 702 000 ml @ 50 mls/hr IV . Q20H [facility] Rx#:[id number] Sodium Chloride 0.9% 500 500 / 500 ml @ Wide Open IV [facility] Rx#:[id number] Heparin/D5w 25,000 Unit 229 / 229 In Premix 1 Bag @ 14 UNIT /KG/HR 19.6 mls/hr IV . Q24H [facility] Rx#:[id number] Levophed 16 mg In Sodium 1 / 1 Chloride 0.9% 234 ml @ 2 MCG/MIN 1.87 mls/hr IV Q24H [facility] Rx#:[id number] Potassium Chloride 40 Meq 520 / 520 In Dextrose 5% in Water 500 ml @ 130 mls/hr IV UD PRN Rx#:[id number] Vitamin B1 100 mg In 51 51 51 / 51 Sodium Chloride 0.9% 50 ml @ 50 mls/hr IV DAILY [facility] Rx#:[id number] Output: Urine Catheter Amount 94 / 94 127 / 127 20 / 20 Void Amount Other: # of times incontinent of 2 1 Bowels Weight 154 lb 12.232 oz Intake & Output: Intake & Output 12/07/16 12/08/16 12/08/16 21:59 05:59 13:59 Intake Total 1258 / 1258 1189 / 1189 52 / 52 Output Total 127 / 127 45 / 45 Balance 1164 / 1164 1062 / 1062 7 / 7 Weight 154 lb 12.232 oz Intake: IV 1258 / 1258 1189 / 1189 52 / 52 Sodium Chloride 0.9% 1, 187 / 187 702 / 702 000 ml @ 50 mls/hr IV . Q20H [facility] Rx#:[id number] Sodium Chloride 0.9% 500 500 / 500 ml @ Wide Open IV [facility] Rx#:[id number] Heparin/D5w 25,000 Unit 229 / 229 In Premix 1 Bag @ 14 UNIT /KG/HR 19.6 mls/hr IV . Q24H [facility] Rx#:[id number] Levophed 16 mg In Sodium 1 / 1 Chloride 0.9% 234 ml @ 2 MCG/MIN 1.87 mls/hr IV Q24H [facility] Rx#:[id number] Potassium Chloride 40 Meq 520 / 520 In Dextrose 5% in Water 500 ml @ 130 mls/hr IV UD PRN Rx#:[id number] Vitamin B1 100 mg In 51 / 51 51 / 51 Sodium Chloride 0.9% 50 ml @ 50 mls/hr IV DAILY [facility] Rx#:[id number] Output: Urine Catheter Amount 94 / 94 127 / 127 20 / 20 Void Amount Other: # of times incontinent of 2 1 Bowels - General Appearance General appearance: appears started age, chronically ill EENT: mucous membranes moist, scleral icterus Neck: no JVD Respiratory: clear Cardiology: no rub, no edema, normal S1, normal S2 Gastrointestinal: no tenderness, no guarding Integumentary: warm and dry Neurologic: alert and oriented x3 Musculoskeletal: no erythema, no cyanosis Psychiatric: mood/affect appropriate - Lab 12/08/16 04:09 12/08/16 04:09 Most recent lab results Calcium 8.4 mg/dl (8.6-10.4) L 12/08/16 04:09 Phosphorus 3.3 mg/dL (2.7-4.5) 12/08/16 04:09 Magnesium 2.9 mg/dL (1.6-2.5) H 12/08/16 04:09 Assessment and Plan (1) Acute renal failure (ARF) Acute renal failure oliguric urine sodium less than 20 despite receiving IV fluids BP low normal multiple factors contributing to renal failure, intermittent hypotension, dehydration (prior to hospitalisation, lost 20 lbs, had poor po intake), frequent use of NSAIDS and 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 High bilirubin levels can also cause acute renal failure she remains oliguric, received IV albumin last night requested to ensure levopehd started this am (was hypotension so needed it anyways) and repeat albumin discussed dialysis if renal function fails to improve however hospitalist team, decided to transfer the patient due to multiple ongoing issues including further eval for portal/hepatic vein thrombosis and possibility of dialysis/line placement Thank you for giving me an opportunity to participate in Ms Otero medical care, appreciate it Status: Acute
[2016-12-11 11:46] LABS: Protein S Antigen 138 % normal (70-140)
[2016-12-11 11:46] LABS: Actin (Smooth Muscle) AB IGG <20 U; Ceruloplasmin 34 mg/dL (18-53)
[2016-12-11 11:46] LABS: Varicella IgM Antibody 0.42
[2016-12-11 11:54] LABS: DRVVT Confirmation POSITIVE (NEGATIVE)
[2016-12-12 11:20] LABS: Mitochondrial Antibody Screen NEGATIVE (NEGATIVE)
[2016-12-12 11:20] LABS: Factor V Activity 106 % normal (65-150)
== END 2016-12-08 10:40 | disposition short-term general hospital (02) | DRG 441 ==
LOC: ED 00:59 → ICU 12:50
PROVIDERS: ADMIT Internal Medicine; ATTEND Internal Medicine